=== PATIENT | male | born 1995 | race Caucasian/White ===

== ENCOUNTER 2017-12-20 11:59 | Inpatient (IN) | payer MEDICAID, OTHER ==
[2017-12-20] MEDS ORDERED: OLANZapine DISINTEGR 5 MG TAB PO ONE (12:19)
[2017-12-20] MEDS ORDERED: HALOPERIDOL LACT 5 MG/ML INJ ONE (12:23)
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
[2017-12-20] MEDS ORDERED: HALOPERIDOL LACT 5 MG/ML INJ IM ONE (12:29)
[2017-12-20 12:44] LABS: PLATELET COUNT 310 10^3/uL (150-400)
[2017-12-20 13:02] LABS: CREATINE KINASE 239 IU/L (0-224)
[2017-12-20] MEDS ORDERED: POTASSIUM CL 20 MEQ PKT PO ONE (14:04)
[2017-12-21] MEDS ORDERED: NICOTINE POLACRILEX 2 MG GUM B PRN (11:35)
[2017-12-21] MEDS ORDERED: MAG HYDROX/AL HYDROX/SIMETH 30 ML UDCUP PO PRN (11:35)
[2017-12-21] MEDS ORDERED: ACETAMINOPHEN 325 MG TAB PO PRN (11:35)
[2017-12-21] MEDS ORDERED: OLANZapine DISINTEGR 10 MG TAB PO PRN (11:35)
[2017-12-21] MEDS ORDERED: LORazepam 0.5 MG TAB PO PRN (11:35)
[2017-12-21] MEDS ORDERED: MAGNESIUM HYDROXIDE 30 ML UDCUP PO PRN (11:35)
--- NOTE | 2017-12-21 13:41 | BAPA ---
[f rep st] ADMISSION PSYCHIATRIC ASSESSMENT IDENTIFICATION: This is a 22-year-old single white male who is unemployed, who lives with a roommate in [place]. His parents and brother live in the [facility] area as well. REASON FOR ADMISSION: The patient was transferred from the [facility] Emergency Department on an M1 hold due to report that the patient was found by police confused, wandering, disoriented, disorganized, delusional, and unable to care for himself, and also reporting paranoia. The M1 hold was dated December 20, 2017 at 11:20. CHIEF COMPLAINT: "I was staying at a friend's apartment and I cannot get a job or pay the rent and I had a rough night and I was hanging out with this girl we were smoking weed and then we were in a parking garage, then I thought the parking garage was going to fall on me and it was going to collapse and I thought the world was ending and then I heard a phone call and I thought it was a English telling me that there was a bomb there." HISTORY OF PRESENT ILLNESS: The patient is a poor historian with tangential and disorganized speech. The patient reports he smokes cannabis about 3 times a week. He reports has had problems with depression, having low energy, low activity, and disinterest in things for several months. He reports that he started Lexapro as an antidepressant on December 17, from his primary care provider. He reports after that, he then had severe insomnia, only sleeping 1 or 2 hours at night, had disorganized thinking, racing thoughts, mood swings, and was heavily smoking cannabis to "calm down." He then reports over the past 3 days having paranoia that people were trying to hurt him, paranoid that people were following him, paranoid that strange things were happening. He was concerned that a parking garage was collapsing on him and the Russians were calling his cell phone to tell him about a bombing. Also having strange thoughts about his sexuality and the intentions of others and having disorganized thinking. He reports in the past 3 days having suicidal thoughts, thoughts of being . He denies a specific plan to hurt himself or any furtherance toward self-harm. He denies any violent thoughts. He denies homicidal ideation. He denies hallucinations. However, in the emergency room, the patient was apparently responding to internal stimuli and having erratic behavior. Apparently, the patient was paranoid about the medical staff and tried to elope from the emergency room, and went into four-point restraints. There, he apparently got Haldol 10 mg, olanzapine 5 mg, as well as potassium for hypokalemia. He did have a head CT that was normal. In the emergency department, the patient was irritable and disorganized and appeared gravely disabled. The patient denies any recent change in his physical health. He denies any chronic medical problems. He denies other substance abuse such as alcohol, stimulants, hallucinogens, or opiates. PAST PSYCHIATRIC HISTORY: He denies any psychiatric hospitalizations. He denies any past suicide attempts or violence toward others. He reports 2 tickets in high school for cannabis possession. He reports cannabis abuse since 8th grade and smokes 3 times a week. He denies other past substance abuse problems. He does report in 2014 going to residential substance abuse treatment program in [place] for cannabis abuse. The patient reports this is his first psychiatric medication trial starting Lexapro on December 17 at 5 mg from his primary care provider. He denies other psychiatric medication trials. He denies any current legal problems. ALLERGIES: Amoxicillin. PAST MEDICAL HISTORY: He denies any chronic medical problems. He denies traumatic brain injury. Per the records, he has a past history of asthma and an appendectomy. He denies any active medical conditions at this time. MEDICATIONS: Lexapro 5 mg from his primary care provider. SOCIAL HISTORY: He reports he was raised by his parents without abuse or neglect or trauma. He graduated from high school. He has never been in the . Never been . Has no children. His longest job was 1-2 years , working at [employer]. He is currently unemployed. He lives with a roommate. The patient's parents live in [place]. His sister lives in [place]. His brother lives in [place]. FAMILY HISTORY: Per the emergency department report, the patient has extended family members with depression and alcoholism. The patient denies any known family history of suicide. He reports his parents, brother and sister are physically healthy. PHYSICAL EXAMINATION: VITALS: He is 187 cm, 83.4 kg with a BMI of 23.6. His blood pressure is 121/70, respiratory rate 16, heart rate 84, pulse ox 93% on room air. Temperature is afebrile. GENERAL: He is an alert white male in no acute distress who is mostly calm but has disorganized behavior on the unit. He is ambulatory and cooperative. He appears internally preoccupied at times and distracted. His speech is regular rate and rhythm but fragmented due to disorganized thinking. He is also very tangential and rambling at times. He currently denies suicidal thoughts, but he reports suicidal thoughts over the past 4 days. He denies intent or plan to harm himself. He denies violent or homicidal thoughts. He denies auditory hallucinations. He does describe paranoia, multiple things happening that are tormenting him. He reduced anxiety and paranoia compared to when he was taken to the emergency room. The patient appears mildly slowed and has mild increased tone. His insight appears to be limited to poor. His judgment is questionable or impaired. ASSESSMENT: Brief psychotic disorder, Cannabis use disorder, severe. Rule out substance induced psychotic disorder. Rule out substance induced mood disorder. The overall assessment is the patient is on M1 hold after he called police due to having bizarre thoughts. The patient apparently was disorganized, paranoid and agitated in the emergency room and had to go in four-point restraints after trying to elope. The patient did receive 10 mg of Haldol and 5 mg Zyprexa in the emergency department. The patient currently appears somewhat disorganized with residual paranoia but is overall calm. There is concern of recent mood episode where he was prescribed Lexapro last week by his PCP for depression, but then had severe insomnia with racing thoughts and erratic behavior after that, so there was concern that he may or may not have a bipolar spectrum mood disorder. The patient likely has a cannabis related psychotic component to his symptoms, but is concerning that this current hospitalization, which is his first, occurred just a few days after starting Lexapro. The patient has mild extrapyramidal symptoms likely from Haldol. LABORATORY RESULTS: The patient had a baseline head CT in the emergency room that was normal. His urine tox screen was positive for cannabis. Alcohol negative. He had a white blood cell count of 9.5, hemoglobin 16.8, platelet count 310, sodium 143, potassium 3.2, creatinine 1.0, glucose 177, which is high , it is unclear if the patient received any IV medications that could have caused that, calcium 9.9. CK was 239. PLAN: 1. The patient is on M1 hold for grave disability due to disorganized psychosis. The patient also recently made statements about suicide. 2. The patient will be on elopement precautions, assault awareness and suicide precautions as the patient apparently attempted to elope from the ER. Appears gravely disabled from a psychotic episode and made brief statements about suicide both in the emergency room and on the inpatient unit here. 3. Will hold the patient's Lexapro as the patient may have had an induction of a mixed episode after starting Lexapro last week. 4. Will start olanzapine 5 mg p.o. at bedtime as an antipsychotic and mood stabilizer. Will also start Ativan 1 mg p.o. at bedtime for sleep. The patient was given information about olanzapine causing tardive dyskinesia metabolic syndrome, sedation, weight gain. 5. We will monitor patients behavior and impulse control to clarify if the patient has a bipolar spectrum mood disorder. 6. We will monitor the patient's behavior on the inpatient unit to clarify his diagnosis. 7. The patient had hypokalemia in the ER, received 20 mEq of potassium. We will order 20 mEq of potassium daily for 4 days on the inpatient unit and then stop. 8. Ordered add on labs to his blood work including liver function tests, hemoglobin A1c, lipid panel, TSH. 9. Discussed with the patient the risk of cannabis causing psychotic symptoms and anxiety and agitation and illogical or rational thinking and behaviors. Discussed the benefits of stopping cannabis use in order to improve his relationships with his family and friends and to increase the likelihood that he finds employment in the future as motivation for sobriety. 10. The patient is listed as having Medicaid. The patient will be referred to [facility] for outpatient mental health treatment after discharge. 11. Patient signed an BRIAN for his mother. I spoke to her on the phone and reviewed the assessment and plan and visiting hours and unit phone number. 12. I left a message for PCP Dr. Perales at [facility], notifying him that patient was admitted and would be referred to [facility] after discharge. /[id number]/MODL MTDD
--- NOTE | 2017-12-21 17:17 | BCON ---
[f rep st] BEHAVIORAL HEALTH CONSULTATION INTERNAL MEDICINE CONSULTATION DATE OF CONSULTATION: 12/21/2017 REFERRING PHYSICIAN: VALENTINA GRACE MD REASON FOR REFERRAL: Medical clearance for inpatient behavioral health stay. HISTORY OF PRESENT ILLNESS: This patient was brought to the emergency department yesterday by police on an M1 hold. He has been acting bizarrely. He became quite agitated in the emergency department, attempted to elope and required restraints as well as haloperidol and olanzapine. He was subsequently admitted to inpatient Behavioral Health for further psychiatric treatment. This episode began several days after a new prescription for escitalopram. He had severe insomnia and was using marijuana to try to treat the insomnia. Currently, he is without any acute medical complaints. PAST MEDICAL HISTORY: 1. Depression. 2. Appendicitis. SURGICAL HISTORY: He has had an appendectomy. MEDICATIONS: Prior to admission, escitalopram 5 mg p.o. daily. ALLERGIES: Listed to amoxicillin. SOCIAL HISTORY: He is currently unemployed. He lives with roommates. He is a former tobacco smoker and current marijuana smoker. He has worked in the past at [employer]. FAMILY HISTORY: Noncontributory. REVIEW OF SYSTEMS: He denies cough or dyspnea. He is not in pain. He has a good appetite. He denies nausea, vomiting, constipation or diarrhea. Otherwise , a 10-point review of systems is negative. PHYSICAL EXAM: VITAL SIGNS: Blood pressure is 121/70, heart rate is 84, respiratory rate is 16, oxygen saturation is 93% on room air. Temperature is 36.5 degrees centigrade. His weight is 83.5 kg for a body mass index of 23.6. GENERAL: This is a well-nourished, well-developed man, appears his chronologic age, cooperative and in no acute distress. HEENT: Extraocular movements are intact. Pupils are equal, round, reactive to light. Mucous membranes are moist. Dentition is in good condition. He has an uncrowded airway, Mallampati class 1. NECK: Supple. HEART: Regular rate and rhythm with no murmurs, rubs , or gallops. LUNGS: Clear to auscultation bilaterally. ABDOMEN: Benign. EXTREMITIES: There is no cyanosis, clubbing, or edema. NEUROLOGIC: He is alert and oriented x3. Cranial nerves 2-12 are grossly intact. There is no focal weakness and sensation is intact to light touch. LABORATORY STUDIES: Drawn in the emergency department, CBC showed mild elevation of white blood count at 9.51, there was no left shift and otherwise, CBC was unremarkable. Serum chemistry showed a low potassium of 3.2, a low carbon dioxide at 12, and anion gap of 27. Blood sugar was elevated at 177, though this may not have been fasting as it was drawn at 12:38 in the afternoon. Creatine kinase was slightly elevated at 239. Hemoglobin A1c is 5.4. Lipid panel reveals a slightly high LDL at 108 and a low HDL at 35; otherwise, is unremarkable. TSH is normal. Toxicology screen in the serum was negative for salicylates, acetaminophen or ethyl alcohol, and in the urine was non-negative for marijuana but negative for other substances of abuse. ASSESSMENT AND RECOMMENDATIONS: 1. Brief psychotic episode, pending further evaluation and management per Psychiatry and the mental health team. 2. Hypokalemia and anion gap of unclear etiology. The slightly elevated creatine kinase is not consistent with rhabdomyolysis. It is conceivable that if he had not been eating very much during his psychotic episode he could have ketosis, but by now this would have resolved. He has been prescribed potassium chloride out of the emergency department. I will recheck a BMP tomorrow morning and if it is normalized, it is likely that the potassium chloride could be discontinued. 3. Marijuana use disorder. Consider specific substance abuse counseling. I see no medical contraindications to this patient's continued stay on the inpatient behavioral health unit or to any psychiatric medications or procedures. Thank you very much for including me in the care of this patient and please do not hesitate to contact me or the hospitalist service should there be need for further medical evaluation. /[id number]/MODL MTDD
[2017-12-21] MEDS: LORazepam 1 MG TAB PO SCH ×2 (21:26→21:32)
[2017-12-21] MEDS: OLANZapine DISINTEGR 5 MG TAB PO SCH (21:26)
[2017-12-22] MEDS ORDERED: POTASSIUM CL 20 MEQ/15 ML UDCUP PO SCH (09:00)
--- NOTE | 2017-12-22 09:56 | SOAPPROG ---
SOAP Progress Note Assessment/Plan: Assessment: Anion gap and hypokalemia have resolved. Will discontinue potassium replacement. 12/22/17 09:55 Subjective: Labs reviewed Objective: Vital Signs Temp Pulse Resp BP Pulse Ox 36.5 C 72 16 122/76 H 98 12/22/17 06:00 12/22/17 06:00 12/22/17 06:00 12/22/17 06:00 12/22/17 06:00 Laboratory Results 12/22/17 06:00 ICD10 Worksheet Patient Problems: Problems Problem Status Onset Acute psychosis Acute Cannabis abuse Acute Cyclothymia Acute
--- NOTE | 2017-12-22 12:30 | SOAPPROG ---
SOAP Progress Note Assessment/Plan: Assessment: Brief Psychotic Disorder Cannabis Use Disorder severe R/O Substance induced mood/psychotic disorders Patient admitted on M-1 for grave disability for paranoia, hallucinations, disorganized behavior, and brief SI concurrent with cannabis abuse; patient may have had mixed mood symptoms after starting Lexapro last week from PCP. Patient reports paranoia last night and brief mood instability this AM but denies hallucinations or suicidal thoughts today. Plan: M-1 hold expires 12/23/17 Continue Olanzapine ODT 5mg QHS Ativan 1mg PRN anxiety Refer to [facility] Monitor mood instability, paranoia Requested hourly caregiver outreach family to clarify if they can monitor patient daily after discharge and assist in obtaining follow up treatment. 12/22/17 12:30 Subjective: CC: "Better" Patient reports sleeping well. Reports this AM having brief mood swings and racing thoughts, but denies feeling agitated or irritable. Denies feeling hopeless or suicidal. Denies violent thoughts. Reports last night having brief paranoia that others were trying to harm him. Denies paranoia this AM and felt calm and comfortable in groups. Reports racing thoughts and insomnia prior to admission and paranoia that the government or IGG were trying to kill him. Reports good visit with parents last night and is willing to live with them short term after discharge. Denies feeling oversedated or slowed by medicine. Reports he is considering stopping cannabis use. Reports using mushrooms over a month ago. Objective: Vital Signs Temp Pulse Resp BP Pulse Ox 36.5 C 72 16 122/76 H 98 12/22/17 06:00 12/22/17 06:00 12/22/17 06:00 12/22/17 06:00 12/22/17 06:00 Laboratory Results 12/22/17 06:00 ALert WM. Ambulatory without tremors or rigidity. Speech RRR, soft voice. Mood 'better' affect restricted, distracted, possibly preoccupied. Thoughts organized briefly with minimal information. Reports paranoia last night but not this AM. Denies AH. Denies SI or HI. No fixed delusions. Insight limited. Judgment questionable. BMP WNL - Time Spent With Patient Time Spent With Patient: 25 minutes - Pending Discharge Pending Discharge Within 24 Hours: Yes Pending Discharge Date: 12/23/17 Pending Discharge Time: 11:00 ICD10 Worksheet Patient Problems: Problems Problem Status Onset Acute psychosis Acute Cannabis abuse Acute Cyclothymia Acute
[2017-12-22] MEDS: OLANZapine DISINTEGR 5 MG TAB PO SCH (21:55)
[2017-12-23 06:36] VITALS: BP 130/74
--- NOTE | 2017-12-23 08:30 | BDS ---
[f rep st] BEHAVIORAL HEALTH DISCHARGE SUMMARY IDENTIFICATION: This is a 22-year-old single white male who is currently unemployed, has never been , has no children. He has been staying with a roommate. His parents live in the [place] area. REASON FOR ADMISSION: Please see initial psychiatric evaluation from December 21, 2017. The patient apparently was acting disorganized and paranoid in the community. He called the police and reported that he was scared that the Russians were hacking his phone and set off a bomb. In the emergency room, the patient was disorganized and paranoid, and he had a head CT scan that was negative in the ER and then admitted to the inpatient unit on an M1 hold. HOSPITAL COURSE: The patient denied any history of suicide attempts or violence toward others. He reports recurrent cannabis abuse since age 13. He reported using cannabis prior to the current admission. He reported he had some problems with depression for a month prior to the current admission. He had started Lexapro as an antidepressant a week prior from his primary care provider. He reports subsequent to that he had racing thoughts and insomnia. He also was using cannabis and developed disorganized thinking, paranoia that Russians were hacking his phone, fear that there was a bomb going off, possible auditory hallucinations, further paranoia about being harmed by others, and also difficulty thinking clearly. The patient reported severe insomnia prior to admission. 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 The patient tolerated olanzapine. The patient gotten olanzapine and Haldol in the emergency room and had initially appeared somewhat slowed. The patient tolerated olanzapine on the unit. He reported remission of paranoia, improved organization of thought, and he also reported improved mood stability. The patient did report in the ER possibly having suicidal thoughts prior to admission. Patient reported having on the unit suicidal thoughts in the past week related to feeling ashamed that he may be bisexual, but denied plan or intent to harm himself. He denied any history of suicide attempts on the unit. He reported remission of any types of thoughts of suicide after admission. The patient signed a release of information for his parents. His parents were agreeable for the patient to return home to live with them so they could monitor his medication compliance after discharge and assist him in getting followup mental health treatment. On the unit, the patient was calm and pleasant. He was somewhat quiet and isolative. He was able to attend most groups. He was eating well and sleeping well on the unit. He did not appear to be in severe emotional distress. He reported remission of his anxiety, improvement in mood and improvement in sleep , and denied further suicidal thoughts or further paranoia. The patient had 2 visits from his parents prior to discharge. He wrote and extensive safety plan. The patient was agreeable to referral to [facility] for outpatient mental health and substance abuse treatment after discharge. CONDITION ON DISCHARGE: He is an alert white male in no acute distress. He is ambulatory, cooperative and pleasant. His speech is regular in rate and rhythm but somewhat soft with his voice. His thoughts are organized with limited detail. He describes his mood as "pretty good." His affect is euthymic and reactive. He denies thoughts to hurt himself or others. He denies paranoia or hallucinations. His memory is fair. His insight is limited. His judgment appears appropriate for the situation. ADVANCED DIRECTIVES: Patient did not have an advance directive and declined to have one. His next of kin are his parents. ALLERGIES: He is allergic to amoxicillin. PAST MEDICAL HISTORY: The patient denies traumatic brain injury, seizures, or chronic medical problems. He does have a childhood history of asthma and a history of an appendectomy. PROCEDURES: In the [facility] Emergency Department, the patient had a head CT scan that was negative. CONSULTATIONS: The patient was seen by Dr. Hernandez on 12/18 for baseline physical exam. The patient was noted to have hypokalemia in the ER, but this resolved and his potassium level was normal after receiving a potassium supplement. LABS PENDING: None. LAB RESULTS: In the emergency department, the patient had a urine tox screen positive for cannabis, negative for other drugs of abuse. Serum was negative for alcohol, acetaminophen or salicylates. He had a white blood cell count 9.5 , hemoglobin 16.8, platelet count 310, CK 239, triglycerides 86, LDL 108, TSH 0.9, HDL 35, AST 36, ALT 30. In the emergency department, the patient had a glucose of 177 and a potassium of 3.2, but it is unclear if the patient had received IV dextrose in the ER prior to that blood draw. The patient did receive potassium supplement in the ER. On December 22, 2017, the patient's basic metabolic panel was normal with a sodium 144, potassium 4.7, creatinine 1.0, glucose 75, calcium 9.3. DISCHARGE DIAGNOSIS: 1. Brief psychotic disorder. 2. Cannabis use disorder, severe, rule out cannabis related psychotic disorder. 3. Rule out antidepressant induced bipolar/mood disorder. 4. History of depression. 5. History of an appendectomy. DISCHARGE MEDICATIONS: Olanzapine 5 mg by mouth at bedtime. Patient was instructed to discontinue Escitalopram. DISPOSITION: The patient is leaving the unit with his parents. He will live with them in the short term so they can monitor his medication compliance and assist him in getting followup. FOLLOWUP: The patient is referred to [facility] for outpatient mental health treatment after discharge. The patient's primary care provider is at [facility], Dr. Perales. I left a message for him that the patient was treated on the inpatient unit and would be following up at [facility] for psychiatric treatment after discharge. LEGAL STATUS: The patient was admitted on an M1 hold and is being discharged to receive outpatient treatment on a voluntary basis. /[id number]/MODL MTDD
== END 2017-12-23 13:45 | disposition home or self-care (01) | DRG 885 ==
LOC: EDUNIT# → BBEH 12-21 11:19
DX: F29 Unspecified psychosis not due to a substance or known physiological condition (principal); F39 Unspecified mood [affective] disorder; E87.6 Hypokalemia; F12.90 Cannabis use, unspecified, uncomplicated
CPT/HCPCS: 80305; G0480; J1630